=== PATIENT | male | born 1960 | race American Indian/Alaskan Native ===

== ENCOUNTER 2018-11-07 16:58 | Inpatient (IN) | payer OTHER ==
[2018-11-07] MEDS ORDERED: ZOFRAN IV ONE (17:46)
--- NOTE | 2018-11-07 17:48 | Emergency Department Report ---
ED GI Bleed HPI - General Chief complaint: GI Bleed Stated complaint: POSS GI BLEED Time Seen by Provider: 11/07/18 17:27 Source: patient, EMS Mode of arrival: Stretcher Limitations: No Limitations - History of Present Illness Initial comments: Patient is a 58-year-old male Emergency room for vomiting blood. Patient states he was large volume monitor blood in the toilet and on the floor and on his shoes. Patient states he is not having any abdominal pain. Patient denies fever and chills. Patient states his symptoms started yesterday. Patient st ated yesterday he started having dark black stool. She has not taken any anticoagulate the patient is taking naproxen at times and aspirin daily MD complaint: gross hematemesis, melena -: Sudden, days(s) Radiation: none Severity scale (0 -10): 0 Quality: painless Consistency: constant Improves with: none Worsens with: none Associated Symptoms: nausea, vomiting. denies: abdominal pain, epistaxis, fever/chills, headaches, loss of appetite, malaise, easy bruising, rash, other bleeding, shortness of breath, syncope, weakness - Related Data Home Medications Medication Instructions Recorded Confirmed Last Taken Aspirin [Aspirin BABY CHEW TAB] 81 mg PO QAM 11/07/18 11/07/18 Unknown Atorvastatin [Lipitor Tab] 40 mg PO QPM 11/07/18 11/07/18 Unknown Calcium Carbonate [Tums 500MG CHEW] 500 mg PO BID 11/07/18 11/07/18 Unknown Carvedilol [Coreg] 25 mg PO BID 11/07/18 11/07/18 Unknown Clopidogrel [Plavix] 75 mg PO QAM 11/07/18 11/07/18 Unknown Divalproex [Jonas WOODALL] 500 mg PO BID 11/07/18 11/07/18 Unknown Insulin Regular, Human [HumuLIN R] 22 unit IJ BID 11/07/18 11/07/18 Unknown Isosorbide Dinitrate [Isordil 20 mg PO BID 11/07/18 11/07/18 Unknown Titradose] Mirtazapine [Remeron 45mg TAB] 45 mg PO QPM 11/07/18 11/07/18 Unknown OLANzapine [ZyPREXA] 10 mg PO BID 11/07/18 11/07/18 Unknown Potassium Chloride [K-Dur] 10 meq PO DAILY 11/07/18 11/07/18 Unknown hydrALAZINE [Apresoline] 25 mg PO BID 11/07/18 11/07/18 Unknown Allergies Allergy/AdvReac Type Severity Reaction Status Date / Time No Known Allergies Allergy Verified 01/02/18 23:55 ED Review of Systems ROS: Stated complaint: POSS GI BLEED Other details as noted in HPI Constitutional: denies: chills, fever Eyes: denies: eye pain, eye discharge, vision change ENT: denies: ear pain, throat pain Respiratory: denies: cough, shortness of breath, wheezing Cardiovascular: denies: chest pain, palpitations Endocrine: no symptoms reported Gastrointestinal: nausea, vomiting, hematemesis, melena. denies: abdominal pain, diarrhea, constipation, hematochezia Genitourinary: denies: urgency, dysuria Musculoskeletal: denies: back pain, joint swelling, arthralgia Skin: denies: rash, lesions Neurological: denies: headache, weakness, paresthesias Psychiatric: denies: anxiety, depression Hematological/Lymphatic: denies: easy bleeding, easy bruising ED Past Medical Hx - Past Medical History Previous Medical History?: Yes Hx Hypertension: Yes Hx Heart Attack/AMI: Yes Hx Diabetes: Yes Hx Psychiatric Treatment: Yes (Bipolar, anxiety) Additional medical history: Neuropathy, ptsd, left ear deaf - Surgical History Past Surgical History?: Yes Additional Surgical History: Pacemaker - Family History Family history: no significant - Social History Smoking Status: Former Smoker Substance Use Type: None - Medications Home Medications: Home Medications Medication Instructions Recorded Confirmed Last Taken Type Aspirin [Aspirin BABY CHEW TAB] 81 mg PO QAM 11/07/18 11/07/18 Unknown History Atorvastatin [Lipitor Tab] 40 mg PO QPM 11/07/18 11/07/18 Unknown History Calcium Carbonate [Tums 500MG CHEW] 500 mg PO BID 11/07/18 11/07/18 Unknown History Carvedilol [Coreg] 25 mg PO BID 11/07/18 11/07/18 Unknown History Clopidogrel [Plavix] 75 mg PO QAM 11/07/18 11/07/18 Unknown History Divalproex [Jonas WOODALL] 500 mg PO BID 11/07/18 11/07/18 Unknown History Insulin Regular, Human [HumuLIN R] 22 unit IJ BID 11/07/18 11/07/18 Unknown History Isosorbide Dinitrate [Isordil 20 mg PO BID 11/07/18 11/07/18 Unknown History Titradose] Mirtazapine [Remeron 45mg TAB] 45 mg PO QPM 11/07/18 11/07/18 Unknown History OLANzapine [ZyPREXA] 10 mg PO BID 11/07/18 11/07/18 Unknown History Potassium Chloride [K-Dur] 10 meq PO DAILY 11/07/18 11/07/18 Unknown History hydrALAZINE [Apresoline] 25 mg PO BID 11/07/18 11/07/18 Unknown History ED Physical Exam - General Limitations: No Limitations General appearance: alert, in no apparent distress - Head Head exam: Present: atraumatic, normocephalic - Eye Eye exam: Present: normal appearance - ENT ENT exam: Present: mucous membranes moist - Neck Neck exam: Present: normal inspection - Respiratory Respiratory exam: Present: normal lung sounds bilaterally. Absent: respiratory distress - Cardiovascular Cardiovascular Exam: Present: regular rate, normal rhythm. Absent: systolic murmur, diastolic murmur, rubs, gallop - GI/Abdominal GI/Abdominal exam: Present: soft, normal bowel sounds. Absent: distended, tenderness, guarding - Rectal Rectal exam: Present: deferred - Extremities Exam Extremities exam: Present: normal inspection - Back Exam Back exam: Present: normal inspection - Neurological Exam Neurological exam: Present: alert, oriented X3 - Psychiatric Psychiatric exam: Present: normal affect, normal mood - Skin Skin exam: Present: warm, dry, intact, normal color. Absent: rash ED Course Vital Signs 11/07/18 11/07/18 11/07/18 17:28 17:30 17:42 Temperature 98.1 F Pulse Rate 104 H 113 H 114 H Respiratory 14 11 L 18 Rate Blood Pressure Blood Pressure 115/70 [Left] O2 Sat by Pulse 100 Oximetry 11/07/18 11/07/18 11/07/18 17:46 18:00 18:15 Temperature Pulse Rate 103 H 113 H 113 H Respiratory 12 15 15 Rate Blood Pressure 131/71 115/70 137/77 Blood Pressure [Left] O2 Sat by Pulse 100 100 99 Oximetry 11/07/18 11/07/18 11/07/18 18:30 18:45 19:00 Temperature Pulse Rate 104 H 102 H 113 H Respiratory 13 14 19 Rate Blood Pressure 137/77 124/67 124/67 Blood Pressure [Left] O2 Sat by Pulse 100 100 99 Oximetry 11/07/18 11/07/18 11/07/18 19:15 19:30 19:45 Temperature Pulse Rate 110 H 107 H 122 H Respiratory 19 15 12 Rate Blood Pressure 128/74 132/68 147/69 Blood Pressure [Left] O2 Sat by Pulse 99 99 100 Oximetry 11/07/18 11/07/18 11/07/18 20:00 20:14 20:15 Temperature Pulse Rate 116 H 110 H Respiratory 14 18 13 Rate Blood Pressure 123/78 123/78 Blood Pressure [Left] O2 Sat by Pulse 99 100 100 Oximetry 11/07/18 11/07/18 11/07/18 20:30 20:45 21:00 Temperature Pulse Rate 114 H 114 H 108 H Respiratory 20 13 11 L Rate Blood Pressure 135/72 135/72 149/86 Blood Pressure [Left] O2 Sat by Pulse 100 100 100 Oximetry 11/07/18 11/07/18 11/07/18 21:15 21:17 21:30 Temperature 98.2 F Pulse Rate 99 H 99 H 104 H Respiratory 13 18 9 L Rate Blood Pressure 139/74 139/74 149/80 Blood Pressure [Left] O2 Sat by Pulse 100 99 99 Oximetry 11/07/18 11/07/18 11/07/18 21:32 21:45 22:00 Temperature 98.4 F Pulse Rate 103 H 107 H 111 H Respiratory 20 12 12 Rate Blood Pressure 149/80 139/78 135/73 Blood Pressure [Left] O2 Sat by Pulse 99 100 98 Oximetry 11/07/18 11/07/18 11/07/18 22:02 22:15 22:31 Temperature 98.5 F Pulse Rate 110 H 119 H 109 H Respiratory 20 21 14 Rate Blood Pressure 135/73 135/73 149/78 Blood Pressure [Left] O2 Sat by Pulse 100 94 99 Oximetry 11/07/18 22:32 Temperature 98.6 F Pulse Rate 111 H Respiratory 20 Rate Blood Pressure 149/78 Blood Pressure [Left] O2 Sat by Pulse 100 Oximetry - Reevaluation(s) Reevaluation #1: I discussed all results and anemia with patient. Patient states he is [employer] but states if he needs to have blood products he wants to have prbc if medically necessary. 11/07/18 18:30 Discussed all results with patient. Patient will be admitted to the hospitalist service. Patient agrees to plan of care. 11/07/18 18:48 - Consultations Consultation #1: GI paged 11/07/18 18:[address] Camacho. Patient to be admitted to the hospitalist service and given IV Protonix, nothing by mouth after midnight for an endoscopy. 11/07/18 18:33 Consultation #2: Hospitalist consulted for admission. Hospitalist to admit patient. Hospitalist to assume care patient. 11/07/18 18:48 ED Medical Decision Making - Lab Data Result diagrams: 11/07/18 17:59 11/07/18 17:59 - Medical Decision Making Patient is a 58-year-old male that presents emergency room with complaints of gross hematemesis. Patient found to have anemia. Patient's labs essentially unremarkable except for elevated creatinine. Patient initially upon arrival to the ER stating he did not want any blood products however after further discussing patient's lab results patient states he would like to be transfused. Patient typed and screened. Patient will be given 1 unit. GI consulted. Patient was admitted to the hospitalist service. - Differential Diagnosis GI bleed Critical Care Time: Yes Critical care attestation.: If time is entered above; I have spent that time in minutes in the direct care of this critically ill patient, excluding procedure time. Critical Care Time: 35 minutes ED Disposition Clinical Impression: Melena Vomiting blood Qualifiers: Nausea presence: with nausea Qualified Code(s): K92.0 - Hematemesis GI bleed Qualifiers: GI bleed type/associated pathology: unspecified gastrointestinal hemorrhage type Qualified Code(s): K92.2 - Gastrointestinal hemorrhage, unspecified Anemia Qualifiers: Anemia type: unspecified type Qualified Code(s): D64.9 - Anemia, unspecified Disposition: DC-09 OP ADMIT IP TO THIS HOSP Is pt being admited?: Yes Does the pt Need Aspirin: No Condition: Critical Time of Disposition: 18:50
[2018-11-07 18:22] LABS: Basophils # (Auto) 0.1 K/mm3 (0.0-0.1); Basophils % (Auto) 0.7 % (0.0-1.8); Eosinophils % (Auto) 0.1 % (0.0-4.3); Hematocrit 22.1 % (35.5-45.6); Hemoglobin 7.3 gm/dl (11.8-15.2); Lymphocytes % (Auto) 16.3 % (13.4-35.0); Mean Corpuscular HGB Conc 33 % (32-34); Mean Corpuscular Volume 89 fl (84-94); Monocytes # (Auto) 0.6 K/mm3 (0.0-0.8); Monocytes % (Auto) 4.7 % (0.0-7.3); Platelet Count 262 K/mm3 (140-440); Red Blood Count 2.47 M/mm3 (3.65-5.03); Red Cell Distribution Width 13.5 % (13.2-15.2)
[2018-11-07 18:34] LABS: Calcium 9.3 mg/dL (8.4-10.2)
[2018-11-07] MEDS ORDERED: NACL 0.9% 500 ML 500 ML IV ONE (18:42)
[2018-11-07] MEDS ORDERED: PROTONIX 80 MG in NACL 0.9% 100 ML IV ONE (18:46)
--- NOTE | 2018-11-07 19:08 | History and Physical Report ---
History of Present Illness Chief complaint: I was coughing up blood History of present illness: 58 YO Male with HTN, OR, DM complicated by Neuropathy, Anxiety, Bipolar, PTSD, Cardiomyopathy S/P Pacemaker placement presents to ED for evaluation. Pt states that he experienced 2 dark tarry stools on yesterday, as well as multiple episodes of vomiting up blood today. Pt is in the custody of law enforcement. Pt transported to [facility]. Pt seen and evaluated in ED and found to have symptoms consistent with GI Bleed complicated by blood loss anemia, Acidosis, SIRS,and Acute Renal Failure. Pt denies fever, chills, CP, Palpitations, Trauma, Ingestion of foreign objects/food/water from new or different sources, or recent ill contacts. pt acknowledges frequent NSAID use, as well as daily aspirin use. Pt admitted to IMCU and initiated on PRBC transfusion and well as IV PPI therapy. No prior admission for review. All listed mediation reconciled at time of admission. Past History Past Medical History: acute OR, diabetes, hypertension, other (Neuropathy,PTSD,Bipolar) Past Surgical History: Other (Pacemaker) Social history: single Family history: diabetes, hypertension Medications and Allergies Allergies Allergy/AdvReac Type Severity Reaction Status Date / Time No Known Allergies Allergy Verified 01/02/18 23:55 Home Medications Medication Instructions Recorded Confirmed Last Taken Type Aspirin [Aspirin BABY CHEW TAB] 81 mg PO QAM 11/07/18 11/07/18 Unknown History Atorvastatin [Lipitor Tab] 40 mg PO QPM 11/07/18 11/07/18 Unknown History Calcium Carbonate [Tums 500MG CHEW] 500 mg PO BID 11/07/18 11/07/18 Unknown History Carvedilol [Coreg] 25 mg PO BID 11/07/18 11/07/18 Unknown History Clopidogrel [Plavix] 75 mg PO QAM 11/07/18 11/07/18 Unknown History Divalproex [Jonas WOODALL] 500 mg PO BID 11/07/18 11/07/18 Unknown History Insulin Regular, Human [HumuLIN R] 22 unit IJ BID 11/07/18 11/07/18 Unknown History Isosorbide Dinitrate [Isordil 20 mg PO BID 11/07/18 11/07/18 Unknown History Titradose] Mirtazapine [Remeron 45mg TAB] 45 mg PO QPM 11/07/18 11/07/18 Unknown History OLANzapine [ZyPREXA] 10 mg PO BID 11/07/18 11/07/18 Unknown History Potassium Chloride [K-Dur] 10 meq PO DAILY 11/07/18 11/07/18 Unknown History hydrALAZINE [Apresoline] 25 mg PO BID 11/07/18 11/07/18 Unknown History Active Meds: Active Medications Pantoprazole Sodium 80 mg/ (Sodium Chloride) 100 mls @ 10 mls/hr IV ONCE ONE Stop: 11/08/18 04:45 Review of Systems Constitutional: no weight loss, no weight gain, no fever, no chills Ears, nose, mouth and throat: no ear pain, no ear discharge, no tinnitis, no decreased hearing, no nose pain, no nasal congestion Cardiovascular: no chest pain, no orthopnea, no palpitations, no rapid/irregular heart beat, no edema, no syncope Respiratory: no cough, no cough with sputum, no excessive sputum, no hemoptysis, no shortness of breath Gastrointestinal: coffee ground emesis, melena, no abdominal pain, no nausea, no vomiting, no hematochezia, no loss of appetite Genitourinary Male: no hematuria, no flank pain, no discharge, no urinary frequency, no urinary hesitancy Rectal: no pain, no incontinence Musculoskeletal: no neck stiffness, no neck pain, no shooting arm pain, no arm numbness/tingling, no low back pain, no shooting leg pain Integumentary: no rash, no pruritis, no redness, no sores, no jaundice Neurological: no transient paralysis, no paralysis, no parathesias, no numbness, no tingling Psychiatric: no anxiety, no memory loss, no change in sleep habits, no insomnia, no change in appetite Endocrine: no cold intolerance, no heat intolerance, no polyphagia, no excessive thirst, no polydipsia, no polyuria Hematologic/Lymphatic: no easy bruising, no easy bleeding, no lymphadenopathy, no lymphedema Allergic/Immunologic: no urticaria, no allergic rhinitis, no persistent infections, no anaphylaxis Exam - Constitutional Vitals: Temp Pulse Resp BP Pulse Ox 98.1 F 114 H 18 115/70 100 11/07/18 17:42 11/07/18 17:42 11/07/18 17:42 11/07/18 17:42 11/07/18 17:42 General appearance: Present: mild distress - EENT Eyes: Present: PERRL ENT: hearing intact, clear oral mucosa - Neck Neck: Present: supple, normal ROM - Respiratory Respiratory effort: normal Respiratory: bilateral: CTA - Cardiovascular Heart Sounds: Present: S1 & S2. Absent: rub, click - Extremities Extremities: pulses symmetrical, No edema Peripheral Pulses: within normal limits - Abdominal General gastrointestinal: Present: soft, non-tender, non-distended, normal bowel sounds Male genitourinary: Present: normal - Integumentary Integumentary: Present: clear, warm, dry - Musculoskeletal Musculoskeletal: gait normal, strength equal bilaterally - Psychiatric Psychiatric: appropriate mood/affect, intact judgment & insight - Neurologic Neurologic: CNII-XII intact, moves all extremities Results - Labs CBC & Chem 7: 11/08/18 04:15 11/08/18 04:15 Labs: Abnormal lab results 11/07/18 11/07/18 11/07/18 Range/Units 17:59 17:59 18:34 WBC 12.0 H (4.5-11.0) K/mm3 RBC 2.47 L (3.65-5.03) M/mm3 Hgb 7.3 L (11.8-15.2) gm/dl Hct 22.1 L (35.5-45.6) % Seg Neutrophils % 78.2 H (40.0-70.0) % Seg Neutrophils # 9.4 H (1.8-7.7) K/mm3 Carbon Dioxide 21 L (22-30) mmol/L BUN 56 H (9-20) mg/dL Creatinine 1.6 H (0.8-1.5) mg/dL Glucose 287 H (75-100) mg/dL POC Glucose 348 H (70-105) Assessment and Plan - Patient Problems (1) GI bleed Current Visit: Yes Status: Acute Qualifiers: GI bleed type/associated pathology: unspecified gastrointestinal hemorrhage type Qualified Code(s): K92.2 - Gastrointestinal hemorrhage, unspecified Plan to address problem: GI consulted in ED, CBC, CMP, IV PPI therapy, PRBC transfusion, Endoscopy as per GI team, Admit to IMCU, supportive care. (2) ARF (acute renal failure) with tubular necrosis Current Visit: Yes Status: Acute Plan to address problem: IVF resuscitation therapy, monitor uop q shift, supportive care. (3) Acidosis Current Visit: Yes Status: Acute Plan to address problem: IVF resuscitation therapy, supportive care. (4) SIRS (systemic inflammatory response syndrome) Current Visit: Yes Status: Acute Plan to address problem: Empiric antibiotic therapy, CBC, CMP, Chest X ray, urinalysis, supportive care. (5) Diabetes Current Visit: Yes Status: Acute Plan to address problem: ADA diet, insulin, accu check, hypoglycemia protocol (6) Anemia Current Visit: Yes Status: Acute Qualifiers: Anemia type: unspecified type Qualified Code(s): D64.9 - Anemia, unspecified Plan to address problem: PRBC transfusion, CBC, supportive care. (7) DVT prophylaxis Current Visit: Yes Status: Acute Plan to address problem: SCD to BLE while in bed, hold anticoagulation due to GI bleed
[2018-11-07] MEDS ORDERED: PROVENTIL IH PRN (19:12)
[2018-11-07] MEDS ORDERED: MORPHINE IV PRN (19:12)
[2018-11-07] MEDS ORDERED: SODIUM CHLORIDE FLUSH SYRINGE 10 ML IV PRN (19:12)
[2018-11-07] MEDS ORDERED: DILAUDID IV ONE (19:57)
--- NOTE | 2018-11-07 20:15 | XRay Report ---
CHEST 1 VIEW INDICATION: dypsnea COMPARISON: None FINDINGS: Support devices: Unipolar pacemaker on the left Heart: Normal Lungs/Pleura: No acute pulmonary or pleural findings. IMPRESSION: 1. No acute disease Signer Name: Jason Hernandez MD Signed: 11/07/2018 8:11 PM Workstation Name: [id number]
[2018-11-07 20:20] LABS: Bilirubin,Urine NEG (Negative); Blood,Urine NEG (Negative); Color,Urine Yellow (Yellow); Mucus,Urine FEW /HPF; Protein,Urine <15 mg/dL mg/dL (Negative); Urobilinogen,Urine < 2.0 mg/dL (<2.0)
[2018-11-07 20:27] LABS: Amphetamine Screen,Urine PRESUMPTIVE NEGATIVE; Benzodiazepines Screen,Urine PRESUMPTIVE NEGATIVE; Cannabinoid Screen,Urine PRESUMPTIVE NEGATIVE; Cocaine Screen,Urine PRESUMPTIVE NEGATIVE; Creatinine,Urine 128.7 mg/dL (0.1-20.0); Methadone Screen,Urine PRESUMPTIVE NEGATIVE; Opiate Screen,Urine PRESUMPTIVE NEGATIVE
[2018-11-07] MEDS ORDERED: NACL 0.9% 1000 ML 1,000 ML IV ONE (20:30)
[2018-11-07] MEDS ORDERED: NACL 0.9% 500 ML 500 ML ONE (20:54)
[2018-11-07] MEDS: ROCEPHIN/NS 1 GM/50 ML 1 GM/50 ML BAG IV SCH (20:56)
[2018-11-07] MEDS: SODIUM CHLORIDE FLUSH SYRINGE 10 ML IV SCH (22:15)
[2018-11-08 05:28] LABS: Basophils # (Auto) 0.1 K/mm3 (0.0-0.1); Basophils % (Auto) 0.6 % (0.0-1.8); Eosinophils # (Auto) 0.1 K/mm3 (0.0-0.4); Eosinophils % (Auto) 1.4 % (0.0-4.3); Hematocrit 20.6 % (35.5-45.6); Hemoglobin 7.1 gm/dl (11.8-15.2); Lymphocytes # (Auto) 2.5 K/mm3 (1.2-5.4); Mean Corpuscular HGB Conc 35 % (32-34); Mean Corpuscular Volume 87 fl (84-94); Monocytes # (Auto) 1.1 K/mm3 (0.0-0.8); Monocytes % (Auto) 12.4 % (0.0-7.3); Platelet Count 202 K/mm3 (140-440); Red Blood Count 2.36 M/mm3 (3.65-5.03); Red Cell Distribution Width 13.9 % (13.2-15.2)
[2018-11-08 05:53] LABS: Alanine Aminotransferase 7 units/L (7-56); Albumin 2.9 g/dL (3.9-5); BUN/Creatinine Ratio 35; Blood Urea Nitrogen 49 mg/dL (9-20); Calcium 8.8 mg/dL (8.4-10.2); Hemolysis Index 3
[2018-11-08] MEDS ORDERED: WATER FOR IRRIG STERILE ONE (07:39)
[2018-11-08] MEDS ORDERED: WATER FOR IRRIG STERILE IR ONE (07:39)
[2018-11-08] MEDS ORDERED: DIPRIVAN 10 MG/ML IV ONE ×2 (07:54)
--- NOTE | 2018-11-08 08:06 | Anesthesia Consultation ---
Anesthesia Consult and Med Hx Date of service: 11/08/18 - Airway Anesthetic Teeth Evaluation: Poor (multple missing, loose teeth ) ROM Head & Neck: Adequate Mental/Hyoid Distance: Adequate Mallampati Class: Class II Intubation Access Assessment: Probably Good - Pre-Operative Health Status ASA Pre-Surgery Classification: ASA3, Emergency Proposed Anesthetic Plan: MAC - Pulmonary Hx Smoking: Yes (former smoker) - Cardiovascular System Hx Hypertension: Yes Hx Heart Attack/AMI: Yes ("couple years ago") Hx Pacemaker: Yes (March 2018) Hx Internal Defibrillator: Yes - Central Nervous System Hx Neuromuscular Disorder: Yes (neuropathy) Hx Psychiatric Problems: Yes (anxiety, bipolar, PTSD) - Gastrointestinal Hx Ulcer: Yes (GI bleed) - Endocrine Hx Insulin Dependent Diabetes: Yes - Hematic Hx Anemia: Yes
--- NOTE | 2018-11-08 08:12 | Gastroenterology Consultation ---
History of Present Illness - Reason for Consult Consult date: 11/08/18 GI bleed Requesting physician: BRIANA LE III - History of Present Illness The patient is a 58 yo aam who presents with hematemesis and melena x 1 day. Pt is an inmate and had multiple episodes of hematemesis (bright blood) and melena the day prior to admission. Denies prior gi bleeding. Pt noted to have severe anemia on admission. Vitals currently stable. Questionable nsaid use prior to admission but he is unable to confirm (based on chart review). No known h/o liver disease. Denies abd pain or brbpr. Past History Past Medical History: acute OH, diabetes, hypertension, other (Neuropathy,PTSD,Bipolar) Past Surgical History: Other (Pacemaker) Social history: single Family history: diabetes, hypertension Medications and Allergies Allergies Allergy/AdvReac Type Severity Reaction Status Date / Time No Known Allergies Allergy Verified 01/02/18 23:55 Home Medications Medication Instructions Recorded Confirmed Last Taken Type Aspirin [Aspirin BABY CHEW TAB] 81 mg PO QAM 11/07/18 11/07/18 Unknown History Atorvastatin [Lipitor Tab] 40 mg PO QPM 11/07/18 11/07/18 Unknown History Calcium Carbonate [Tums 500MG CHEW] 500 mg PO BID 11/07/18 11/07/18 Unknown History Carvedilol [Coreg] 25 mg PO BID 11/07/18 11/07/18 Unknown History Clopidogrel [Plavix] 75 mg PO QAM 11/07/18 11/07/18 Unknown History Divalproex [Jonas WOODALL] 500 mg PO BID 11/07/18 11/07/18 Unknown History Insulin Regular, Human [HumuLIN R] 22 unit IJ BID 11/07/18 11/07/18 Unknown History Isosorbide Dinitrate [Isordil 20 mg PO BID 11/07/18 11/07/18 Unknown History Titradose] Mirtazapine [Remeron 45mg TAB] 45 mg PO QPM 11/07/18 11/07/18 Unknown History OLANzapine [ZyPREXA] 10 mg PO BID 11/07/18 11/07/18 Unknown History Potassium Chloride [K-Dur] 10 meq PO DAILY 11/07/18 11/07/18 Unknown History hydrALAZINE [Apresoline] 25 mg PO BID 11/07/18 11/07/18 Unknown History Active Meds: Active Medications Albuterol (Proventil) 2.5 mg IH Q3HRT PRN PRN Reason: Shortness Of Breath Ceftriaxone Sodium (Rocephin/Ns 1 Gm/50 Ml) 1 gm in 50 mls @ 100 mls/hr IV Q24H AMANDA; Protocol Last Admin: 11/07/18 20:56 Dose: 100 mls/hr Documented by: Sodium Chloride (Nacl 0.9% 1000 Ml) 1,000 mls @ 50 mls/hr IV DIRECT AMANDA Metoclopramide HCl (Reglan) 10 mg IV ONCE ONE Stop: 11/08/18 08:31 Morphine Sulfate (Morphine) 2 mg IV Q4H PRN PRN Reason: Pain, Moderate (4-6) Pantoprazole Sodium (Protonix) 40 mg IV BID AMANDA Sodium Chloride (Sodium Chloride Flush Syringe 10 Ml) 10 ml IV BID AMANDA Last Admin: 11/07/18 22:15 Dose: 10 ml Documented by: Sodium Chloride (Sodium Chloride Flush Syringe 10 Ml) 10 ml IV PRN PRN PRN Reason: LINE FLUSH Review of Systems - Review of Systems All systems: negative (per HPI) Exam - Constitutional Vital Signs: Temp Pulse Resp BP Pulse Ox 98.8 F 80 12 130/46 100 11/08/18 03:18 11/08/18 06:01 11/08/18 06:01 11/08/18 06:01 11/08/18 07:37 General appearance: no acute distress - EENT Eyes: PERRL, EOM intact - Respiratory Respiratory effort: normal Respiratory: bilateral: CTA - Cardiovascular Rhythm: regular Heart Sounds: Present: S1 & S2 - Gastrointestinal General gastrointestinal: Present: soft, non-tender, non-distended, normal bowel sounds - Integumentary Integumentary: Present: clear, warm - Neurologic Neurological: alert and oriented x3 - Psychiatric Psychiatric: appropriate mood/affect - Labs CBC & Chem 7: 11/08/18 04:15 11/08/18 04:15 Lab Results: Laboratory Results - last 24 hr 11/07/18 11/07/18 11/07/18 17:59 17:59 18:00 WBC 12.0 H RBC 2.47 L Hgb 7.3 L Hct 22.1 L MCV 89 MCH 30 MCHC 33 RDW 13.5 Plt Count 262 Lymph % (Auto) 16.3 [place] % (Auto) 4.7 Eos % (Auto) 0.1 Baso % (Auto) 0.7 Lymph # 2.0 [place] # 0.6 Eos # 0.0 Baso # 0.1 Seg Neutrophils % 78.2 H Seg Neutrophils # 9.4 H Sodium 139 Potassium 4.6 Chloride 104.2 Carbon Dioxide 21 L Anion Gap 18 BUN 56 H Creatinine 1.6 H Estimated GFR 54 BUN/Creatinine Ratio 35 Glucose 287 H POC Glucose Calcium 9.3 Total Bilirubin AST ALT Alkaline Phosphatase Total Protein Albumin Albumin/Globulin Ratio Urine Color Urine Turbidity Urine pH Ur Specific [place] Urine Protein Urine Glucose (UA) Urine Ketones Urine Blood Urine Nitrite Urine Bilirubin Urine Urobilinogen Ur Leukocyte Esterase Urine WBC (Auto) Urine RBC (Auto) Urine Mucus Urine Creatinine Urine Sodium Urine Opiates Screen Urine Methadone Screen Ur Barbiturates Screen Ur Phencyclidine Scrn Ur Amphetamines Screen U Benzodiazepines Scrn Urine Cocaine Screen U Marijuana (THC) Screen Drugs of Abuse Note Blood Type O POSITIVE Antibody Screen Negative Crossmatch See Detail 11/07/18 11/07/18 11/07/18 18:34 20:04 20:04 WBC RBC Hgb Hct MCV MCH MCHC RDW Plt Count Lymph % (Auto) [place] % (Auto) Eos % (Auto) Baso % (Auto) Lymph # [place] # Eos # Baso # Seg Neutrophils % Seg Neutrophils # Sodium Potassium Chloride Carbon Dioxide Anion Gap BUN Creatinine Estimated GFR BUN/Creatinine Ratio Glucose POC Glucose 348 H Calcium Total Bilirubin AST ALT Alkaline Phosphatase Total Protein Albumin Albumin/Globulin Ratio Urine Color Yellow Urine Turbidity Clear Urine pH 5.0 Ur Specific [place] 1.019 Urine Protein <15 mg/dl Urine Glucose (UA) 150 Urine Ketones 20 Urine Blood Neg Urine Nitrite Neg Urine Bilirubin Neg Urine Urobilinogen < 2.0 Ur Leukocyte Esterase Neg Urine WBC (Auto) 1.0 Urine RBC (Auto) 1.0 Urine Mucus Few Urine Creatinine 128.7 H Urine Sodium 39 Urine Opiates Screen Presumptive negative Urine Methadone Screen Presumptive negative Ur Barbiturates Screen Presumptive negative Ur Phencyclidine Scrn Presumptive negative Ur Amphetamines Screen Presumptive negative U Benzodiazepines Scrn Presumptive negative Urine Cocaine Screen Presumptive negative U Marijuana (THC) Screen Presumptive negative Drugs of Abuse Note Disclamer Blood Type Antibody Screen Crossmatch 11/08/18 11/08/18 04:15 04:15 WBC 9.1 RBC 2.36 L Hgb 7.1 L Hct 20.6 L MCV 87 MCH 30 MCHC 35 H RDW 13.9 Plt Count 202 Lymph % (Auto) 27.0 [place] % (Auto) 12.4 H Eos % (Auto) 1.4 Baso % (Auto) 0.6 Lymph # 2.5 [place] # 1.1 H Eos # 0.1 Baso # 0.1 Seg Neutrophils % 58.6 Seg Neutrophils # 5.3 Sodium 138 Potassium 3.8 Chloride 103.8 Carbon Dioxide 24 Anion Gap 14 BUN 49 H Creatinine 1.4 Estimated GFR > 60 BUN/Creatinine Ratio 35 Glucose 221 H POC Glucose Calcium 8.8 Total Bilirubin 0.20 AST 7 ALT 7 Alkaline Phosphatase 32 L Total Protein 5.3 L Albumin 2.9 L Albumin/Globulin Ratio 1.2 Urine Color Urine Turbidity Urine pH Ur Specific [place] Urine Protein Urine Glucose (UA) Urine Ketones Urine Blood Urine Nitrite Urine Bilirubin Urine Urobilinogen Ur Leukocyte Esterase Urine WBC (Auto) Urine RBC (Auto) Urine Mucus Urine Creatinine Urine Sodium Urine Opiates Screen Urine Methadone Screen Ur Barbiturates Screen Ur Phencyclidine Scrn Ur Amphetamines Screen U Benzodiazepines Scrn Urine Cocaine Screen U Marijuana (THC) Screen Drugs of Abuse Note Blood Type Antibody Screen Crossmatch Assessment and Plan 1. Upper GI bleeding 2. Anemia 3. YULIANA 4. H/o CAD -plan for EGD today -transfuse blood to keep hgb > 9 given CAD (if no varices on egd) -cont IV PPI drip
--- NOTE | 2018-11-08 08:16 | Anesthesia Day of Surgery ---
Anesthesia Day of Surgery - Day of Surgery Patient Examined: Yes Patient H&P Reviewed: Yes Patient is NPO: Yes Beta Blockers: Yes
--- NOTE | 2018-11-08 08:29 | Post Operative Note ---
Date of procedure: 11/08/18 Pre-op diagnosis: Upper GI bleed Post-op diagnosis: same (ghanshyam arnaldo tear with bleeding stigmata (clot and vessel) s/p clip placement) Findings: EGD: MWT with clot and visible vessel (after clot removed); s/p clip placement x 2; large hiatal hernia. rest of stomach and duodenum benign Procedure: EGD with control of bleeding Anesthesia: MAC Surgeon: JAMAR QIU Estimated blood loss: none Pathology: none Condition: stable Disposition: no change
[2018-11-08] MEDS ORDERED: REGLAN IV ONE (08:30)
[2018-11-08] MEDS ORDERED: ZOFRAN ONE (08:39)
[2018-11-08] MEDS ORDERED: ZOFRAN IV NR (08:41)
--- NOTE | 2018-11-08 08:43 | Operative Report ---
Operative Report Operative Report: Esophagogastroduodenoscopy Procedure Note with Control of bleeding Date of procedure: 11/08/2018 Endoscopist: Say Camacho Pre-op diagnosis: GI bleeding Post-op diagnosis: Angela rg tear with clot and underlying visible vessel s/p clip placement Anesthesia: MAC Complications: No immediate complications Estimated blood loss: None Procedure: After consent was obtained, the patient was placed in the left lateral decubitus position. The olympus endoscope was inserted into the patient's mouth under direct vision, and advanced into the 2nd portion of the duodenum without difficulty. The patient tolerated the procedure well. The views of the mucosa were good. Patient's vital signs were monitored continuously throughout the procedure. Findings: There was a large clot at the GE junction with fresh appearing blood in the lower esophagus. The clot was removed with irrigation and suctioning. there was an underlying visible vessel. Two clips were placed with control of bleeding. There was no active bleeding at the end of the procedure. Large hiatal hernia. There was old appearing blood in the gastric body of the stomach. No obvious bleeding source was seen in the stomach. The duodenum appeared normal. Impression: 1. Angela rg tear with bleeding stigmata s/p clip placement x 2. No active bleeding at the end of the procedure. Recommendations: -cont IV PPI drip tonight, can consider switching to BID dosing tomorrow if no further bleeding -can start clears later today if H/H is stable without signs of further bleeding -no nsaid's -transfuse to keep hgb > 9 given underlying CAD.
[2018-11-08] MEDS ORDERED: NACL 0.9% 500 ML 500 ML IV NR (09:30)
--- NOTE | 2018-11-08 09:33 | Progress Note ---
Assessment and Plan Assessment and plan: 58 YO Male with HTN, GA, DM complicated by Neuropathy, Anxiety, Bipolar, PTSD, Cardiomyopathy S/P Pacemaker placement presents to ED for evaluation. Pt states that he experienced 2 dark tarry stools on yesterday, as well as multiple episodes of vomiting up blood today. Pt is in the custody of law enforcement. Pt transported to [facility]. Pt seen and evaluated in ED and found to have symptoms consistent with GI Bleed complicated by blood loss anemia, Acidosis, SIRS,and Acute Renal Failure. Pt denies fever, chills, CP, Palpitations, Trauma, Ingestion of foreign objects/food/water from new or different sources, or recent ill contacts. pt acknowledges frequent NSAID use, as well as daily aspirin use. Pt admitted to IMCU and initiated on PRBC transfusion and well as IV PPI therapy. No prior admission for review. All listed mediation reconciled at time of admission. (1) GI bleed Current Visit: Yes Status: Acute Qualifiers: GI bleed type/associated pathology: unspecified gastrointestinal hemorrhage type Qualified Code(s): K92.2 - Gastrointestinal hemorrhage, unspecified Plan to address problem: GI consulted in ED, CBC, CMP, IV PPI therapy, PRBC transfusion, Endoscopy as per GI team, Admit to IMCU, supportive care. secondary to ghanshyam rg with bleeding stigmata s/p clip placement x 2. Per GI -cont IV PPI drip tonight, can consider switching to BID dosing tomorrow if no further bleeding -can start clears later today if H/H is stable without signs of further bleeding -no nsaid's -transfuse to keep hgb > 9 given underlying CAD. (2) ARF (acute renal failure) with tubular necrosis Current Visit: Yes Status: Acute Plan to address problem: IVF resuscitation therapy, monitor uop q shift, supportive care. (3) Acidosis Current Visit: Yes Status: Acute Plan to address problem: IVF resuscitation therapy, supportive care. (4) SIRS (systemic inflammatory response syndrome) Current Visit: Yes Status: Acute Plan to address problem: Empiric antibiotic therapy, CBC, CMP, Chest X ray, urinalysis, supportive care. (5) Diabetes Current Visit: Yes Status: Acute Plan to address problem: ADA diet, insulin, accu check, hypoglycemia protocol (6) Anemia Current Visit: Yes Status: Acute Qualifiers: Anemia type: unspecified type Qualified Code(s): D64.9 - Anemia, unspecified Plan to address problem: PRBC transfusion, CBC, supportive care. (7) DVT prophylaxis Current Visit: Yes Status: Acute Plan to address problem: SCD to BLE while in bed, hold anticoagulation due to GI bleed History Interval history: Patient seen and examined, no new complaints, no nausea or vomiting reported. Hospitalist Physical - Physical exam Narrative exam: General appearance: Present: mild distress - EENT Eyes: Present: PERRL ENT: hearing intact, clear oral mucosa, poor dentition - Neck Neck: Present: supple, normal ROM - Respiratory Respiratory effort: normal Respiratory: bilateral: CTA - Cardiovascular Heart Sounds: Present: S1 & S2. Absent: rub, click - Extremities Extremities: pulses symmetrical, No edema Peripheral Pulses: within normal limits - Abdominal General gastrointestinal: Present: soft, non-tender, non-distended, normal bowel sounds Male genitourinary: Present: normal - Integumentary Integumentary: Present: clear, warm, dry - Musculoskeletal Musculoskeletal: gait normal, strength equal bilaterally - Psychiatric Psychiatric: appropriate mood/affect, intact judgment & insight - Neurologic Neurologic: CNII-XII intact, moves all extremities - Constitutional Vitals: Temp Pulse Resp BP Pulse Ox 98.8 F 80 12 130/46 100 11/08/18 03:18 11/08/18 06:01 11/08/18 06:01 11/08/18 06:01 11/08/18 07:37 General appearance: Present: mild distress Results - Labs CBC & Chem 7: 11/09/18 04:26 11/09/18 04:26 Labs: Laboratory Last Values WBC 9.1 K/mm3 (4.5-11.0) 11/08/18 04:15 RBC 2.36 M/mm3 (3.65-5.03) L 11/08/18 04:15 Hgb 7.1 gm/dl (11.8-15.2) L 11/08/18 04:15 Hct 20.6 % (35.5-45.6) L 11/08/18 04:15 MCV 87 fl (84-94) 11/08/18 04:15 MCH 30 pg (28-32) 11/08/18 04:15 MCHC 35 % (32-34) H 11/08/18 04:15 RDW 13.9 % (13.2-15.2) 11/08/18 04:15 Plt Count 202 K/mm3 (140-440) 11/08/18 04:15 Lymph % (Auto) 27.0 % (13.4-35.0) 11/08/18 04:15 [place] % (Auto) 12.4 % (0.0-7.3) H 11/08/18 04:15 Eos % (Auto) 1.4 % (0.0-4.3) 11/08/18 04:15 Baso % (Auto) 0.6 % (0.0-1.8) 11/08/18 04:15 Lymph # 2.5 K/mm3 (1.2-5.4) 11/08/18 04:15 [place] # 1.1 K/mm3 (0.0-0.8) H 11/08/18 04:15 Eos # 0.1 K/mm3 (0.0-0.4) 11/08/18 04:15 Baso # 0.1 K/mm3 (0.0-0.1) 11/08/18 04:15 Seg Neutrophils % 58.6 % (40.0-70.0) 11/08/18 04:15 Seg Neutrophils # 5.3 K/mm3 (1.8-7.7) 11/08/18 04:15 Sodium 138 mmol/L (137-145) 11/08/18 04:15 Potassium 3.8 mmol/L (3.6-5.0) 11/08/18 04:15 Chloride 103.8 mmol/L (98-107) 11/08/18 04:15 Carbon Dioxide 24 mmol/L (22-30) 11/08/18 04:15 14 mmol/L 11/08/18 04:15 BUN 49 mg/dL (9-20) H 11/08/18 04:15 1.4 mg/dL (0.8-1.5) 11/08/18 04:15 Estimated GFR > 60 ml/min 11/08/18 04:15 35 % 11/08/18 04:15 Glucose 221 mg/dL (75-100) H 11/08/18 04:15 POC Glucose 348 (70-105) H 11/07/18 18:34 Calcium 8.8 mg/dL (8.4-10.2) 11/08/18 04:15 0.20 mg/dL (0.1-1.2) 11/08/18 04:15 AST 7 units/L (5-40) 11/08/18 04:15 ALT 7 units/L (7-56) 11/08/18 04:15 32 units/L (35-129) L 11/08/18 04:15 5.3 g/dL (6.3-8.2) L 11/08/18 04:15 2.9 g/dL (3.9-5) L 11/08/18 04:15 1.2 % 11/08/18 04:15 Yellow (Yellow) 11/07/18 20:04 Clear (Clear) 11/07/18 20:04 5.0 (5.0-7.0) 11/07/18 20:04 Ur Specific [place] 1.019 (1.003-1.030) 11/07/18 20:04 <15 mg/dl mg/dL (Negative) 11/07/18 20:04 150 mg/dL (Negative) 11/07/18 20:04 20 mg/dL (Negative) 11/07/18 20:04 Neg (Negative) 11/07/18 20:04 Neg (Negative) 11/07/18 20:04 Neg (Negative) 11/07/18 20:04 < 2.0 mg/dL (<2.0) 11/07/18 20:04 Ur Leukocyte Esterase Neg (Negative) 11/07/18 20:04 1.0 /HPF (0.0-6.0) 11/07/18 20:04 1.0 /HPF (0.0-6.0) 11/07/18 20:04 Few /HPF 11/07/18 20:04 128.7 mg/dL (0.1-20.0) H 11/07/18 20:04 39 mmol/L 11/07/18 20:04 Presumptive negative 11/07/18 20:04 Presumptive negative 11/07/18 20:04 Ur Barbiturates Screen Presumptive negative 11/07/18 20:04 Ur Phencyclidine Scrn Presumptive negative 11/07/18 20:04 Ur Amphetamines Screen Presumptive negative 11/07/18 20:04 U Benzodiazepines Scrn Presumptive negative 11/07/18 20:04 Presumptive negative 11/07/18 20:04 U Marijuana (THC) Screen Presumptive negative 11/07/18 20:04 Disclamer 11/07/18 20:04 Blood Type O POSITIVE 11/07/18 18:00 Antibody Screen Negative 11/07/18 18:00 Crossmatch See Detail 11/07/18 18:00 Active Medications - Current Medications Current Medications: Generic Name Dose Route Start Last Admin Trade Name Michelle PRN Reason Stop Dose Admin Albuterol 2.5 mg 11/07/18 19:12 Proventil IH Q3HRT PRN Shortness Of Breath Ceftriaxone Sodium 1 gm in 50 mls @ 100 mls/hr 11/07/18 20:00 11/07/18 20:56 Rocephin/Ns 1 Gm/50 Ml IV 100 mls/hr Q24H AMANDA Administration Protocol Sodium Chloride 1,000 mls @ 50 mls/hr 11/08/18 08:00 Nacl 0.9% 1000 Ml IV DIRECT AMANDA Pantoprazole Sodium 80 mg/ 100 mls @ 10 mls/hr 11/08/18 10:00 Sodium Chloride IV DIRECT AMANDA 8 MG/HR Sodium Chloride 500 mls @ 0 mls/hr 11/08/18 09:30 Nacl 0.9% 500 Ml IV 11/08/18 18:00 ONCE NR As Directed Morphine Sulfate 2 mg 11/07/18 19:12 Morphine IV Q4H PRN Pain, Moderate (4-6) Ondansetron HCl 4 mg 11/08/18 08:41 Zofran IV 11/08/18 10:30 ONCE NR Sodium Chloride 10 ml 11/07/18 22:00 11/07/18 22:15 Sodium Chloride Flush Syringe 10 Ml IV 10 ml BID AMANDA Administration Sodium Chloride 10 ml 11/07/18 19:12 Sodium Chloride Flush Syringe 10 Ml IV PRN PRN LINE FLUSH
[2018-11-08] MEDS: NACL 0.9% 1000 ML 1,000 ML IV SCH ×2 (09:44→15:45)
[2018-11-08] MEDS: SODIUM CHLORIDE FLUSH SYRINGE 10 ML IV SCH ×2 (09:45→23:10)
[2018-11-08] MEDS ORDERED: PROTONIX IV SCH (10:00)
[2018-11-08] MEDS: PROTONIX 80 MG in NACL 0.9% 100 ML IV SCH ×2 (11:06→20:44)
[2018-11-08] MEDS: ROCEPHIN/NS 1 GM/50 ML 1 GM/50 ML BAG IV SCH (20:47)
[2018-11-09 05:19] LABS: Hematocrit 25.4 % (35.5-45.6); Hemoglobin 8.9 gm/dl (11.8-15.2); Mean Corpuscular HGB Conc 35 % (32-34); Mean Corpuscular Volume 88 fl (84-94); Platelet Count 196 K/mm3 (140-440); Red Blood Count 2.88 M/mm3 (3.65-5.03); Red Cell Distribution Width 13.8 % (13.2-15.2)
[2018-11-09 05:59] LABS: BUN/Creatinine Ratio 17; Blood Urea Nitrogen 20 mg/dL (9-20); Calcium 8.2 mg/dL (8.4-10.2); Hemolysis Index 9
[2018-11-09] MEDS: NACL 0.9% 1000 ML 1,000 ML IV SCH (06:25)
[2018-11-09] MEDS: PROTONIX 80 MG in NACL 0.9% 100 ML IV SCH (06:25)
--- NOTE | 2018-11-09 10:20 | Discharge Summary ---
Providers - Providers Date of Admission: 11/07/18 19:12 Attending physician: GABRIEL VILLASEÑOR MD 11/07/18 19:42 Consult to Physician [CONS] Routine Comment: Dr. Lawson spoke with Dr. Camacho @ 1833 Consulting Provider: JAMAR CAMACHO Physician Instructions: Reason For Exam: gi bleed Primary care physician: SANTOS CHAUDHARY Hospitalization Reason for admission: gi BLEED Condition: Stable Hospital course: 58 YO Male with HTN, ND, DM complicated by Neuropathy, Anxiety, Bipolar, PTSD, Cardiomyopathy S/P Pacemaker placement presents to ED for evaluation. Pt states that he experienced 2 dark tarry stools on yesterday, as well as multiple episodes of vomiting up blood today. Pt is in the custody of law enforcement. Pt transported to [facility]. Pt seen and evaluated in ED and found to have symptoms consistent with GI Bleed complicated by blood loss anemia, Acidosis, SIRS,and Acute Renal Failure. Pt denies fever, chills, CP, Palpitations, Trauma, Ingestion of foreign objects/food/water from new or different sources, or recent ill contacts. pt acknowledges frequent NSAID use, as well as daily aspirin use. Pt admitted to IMCU and initiated on PRBC transfusion and well as IV PPI therapy. No prior admission for review. (1) GI bleed SECONDARY TO ANGELA RG TEAR S/P EGD Treated with PPI drip and transfusion. 2 CLIPS PLACED DURING EGD SWITCHED TO PPI BID AND DISCHARGE TO FOLLOW WITH GI OUTPATIENT STRONGLY ENCOURAGED TO QUIT ETOH AND NO NSAID USE ADVISED complete 30 days of bid Pantoprozole then change to daily ARF (acute renal failure) with tubular necrosis Resolved Acidosis Angela rg tear secondary to etoh abuse ETOH use disorder with no withrdrawal SIRS (systemic inflammatory response syndrome) SECONDARY TO GI BLEED Diabetes Anemia Disposition: [id number]/[place]-[address] COURT/LAW E[employer] Time spent for discharge: 35 mins Core Measure Documentation - Palliative Care Palliative Care/ Comfort Measures: Not Applicable - Core Measures Any of the following diagnoses?: none Exam - Physical Exam Narrative exam: General appearance: Present: mild distress - EENT Eyes: Present: PERRL ENT: hearing intact, clear oral mucosa, poor dentition - Neck Neck: Present: supple, normal ROM - Respiratory Respiratory effort: normal Respiratory: bilateral: CTA - Cardiovascular Heart Sounds: Present: S1 & S2. Absent: rub, click - Extremities Extremities: pulses symmetrical, No edema Peripheral Pulses: within normal limits - Abdominal General gastrointestinal: Present: soft, non-tender, non-distended, normal bowel sounds Male genitourinary: Present: normal - Integumentary Integumentary: Present: clear, warm, dry - Musculoskeletal Musculoskeletal: gait normal, strength equal bilaterally - Psychiatric Psychiatric: appropriate mood/affect, intact judgment & insight - Neurologic Neurologic: CNII-XII intact, moves all extremities - Constitutional Vitals: Temp Pulse Resp BP Pulse Ox 98.3 F 78 14 152/61 99 11/09/18 08:00 11/09/18 09:00 11/09/18 09:00 11/09/18 09:00 11/09/18 09:00 Plan Activity: advance as tolerated, fall precautions Diet: low fat Special Instructions: record daily BP diary Follow up with: SANTOS CHAUDHARY JR, MD [Primary Care Provider] - 3-5 Days JAMAR CAMACHO MD [Staff Physician] - 7 Days Prescriptions: Pantoprazole [Protonix TAB] 40 mg PO BID #60 tablet
--- NOTE | 2018-11-09 11:10 | Gastroenterology Progress Note ---
Assessment and Plan GI: no signs bleeding overnight - PPI qd - advance diet as tolerated - ok to d/c from GI standpoint - will sign off,call if needed Subjective Date of service: 11/09/18 Interval history: - no signs bleeding overnight Objective - Constitutional Vitals: Temp Pulse Resp BP Pulse Ox 98.3 F 78 14 152/61 100 11/09/18 08:00 11/09/18 09:00 11/09/18 09:00 11/09/18 09:00 11/09/18 10:00 General appearance: no acute distress - EENT Eyes: PERRL - Respiratory Respiratory: bilateral: CTA - Cardiovascular Rhythm: regular Heart Sounds: Present: S1 & S2 - Gastrointestinal General gastrointestinal: Present: soft, non-tender, non-distended - Labs CBC & Chem 7: 11/09/18 04:26 11/09/18 04:26 Labs: Laboratory Results - last 24 hr 11/07/18 11/09/18 11/09/18 18:00 04:26 04:26 WBC 8.9 RBC 2.88 L Hgb 8.9 L Hct 25.4 L MCV 88 MCH 31 MCHC 35 H RDW 13.8 Plt Count 196 Sodium 138 Potassium 3.8 Chloride 104.2 Carbon Dioxide 26 Anion Gap 12 BUN 20 Creatinine 1.2 Estimated GFR > 60 BUN/Creatinine Ratio 17 Glucose 258 H Calcium 8.2 L Blood Type O POSITIVE Antibody Screen Negative Crossmatch See Detail
[2018-11-09 11:13] VITALS: BP 155/70
[2018-11-09] MEDS: SODIUM CHLORIDE FLUSH SYRINGE 10 ML IV SCH (11:32)
== END 2018-11-09 12:58 | DRG 368 ==
LOC: ED 16:58 → EEVIPCON 19:12 → IMCU 19:12
PROVIDERS: ADMIT Internal Medicine; ATTEND Internal Medicine
PROC: 30233N1 Transfusion of Nonautologous Red Blood Cells into Peripheral Vein, Percutaneous Approach (ICD-10-PCS; 2018-11-07)
PROC: 0W3P8ZZ Control Bleeding in Gastrointestinal Tract, Via Natural or Artificial Opening Endoscopic (ICD-10-PCS; principal; 2018-11-08)
PROC: 0DC38ZZ Extirpation of Matter from Lower Esophagus, Via Natural or Artificial Opening Endoscopic (ICD-10-PCS; 2018-11-08)
DX: K22.6 Gastro-esophageal laceration-hemorrhage syndrome (principal); N17.0 Acute kidney failure with tubular necrosis; I42.9 Cardiomyopathy, unspecified; E87.2 Acidosis; R65.10 Systemic inflammatory response syndrome (SIRS) of non-infectious origin without acute organ dysfunction; I10 Essential (primary) hypertension; E11.40 Type 2 diabetes mellitus with diabetic neuropathy, unspecified; F41.9 Anxiety disorder, unspecified; F31.9 Bipolar disorder, unspecified; K44.9 Diaphragmatic hernia without obstruction or gangrene; D64.9 Anemia, unspecified; Z72.89 Other problems related to lifestyle; I25.2 Old myocardial infarction; Z83.3 Family history of diabetes mellitus; Z82.49 Family history of ischemic heart disease and other diseases of the circulatory system; Z79.82 Long term (current) use of aspirin; Z79.899 Other long term (current) drug therapy; Z95.810 Presence of automatic (implantable) cardiac defibrillator
CPT/HCPCS: 36415; 71045; 80048; 80053; 80307; 81001; 82570; 82962; 84300; 85025; 85027; 86850; 86900; 86901; 86920; G0378; C9113; J0696; J1170; J2405; J2704; J2765; J7030; J7040; P9016